=== PATIENT | female | born 1945 | race Caucasian/White ===

== ENCOUNTER → 2023-06-02 09:20 | Outpatient (CLI) | payer MEDICARE, SELFPAY ==
[2023-06-02 12:53] LABS: Appearance Urine UA CLEAR; Bilirubin Urine UA NEGATIVE (NEGATIVE); Color Urine UA YELLOW; Glucose Urine UA NEGATIVE (Negative); Ketones Urine UA NEGATIVE (NEGATIVE); Leukocyte Esterase Urine UA NEGATIVE (NEGATIVE); Nitrite Urine UA NEGATIVE (Negative); Occult Blood Urine UA NEGATIVE (Negative); Protein Urine UA NEGATIVE (Negative)
[2023-06-02 13:06] LABS: pH Urine UA 6.5 (4.5-8.0)
[2023-06-02 14:01] LABS: Bacteria Urine None Seen; Culture Indicated Urine Cult Not Indicated; RBC Urine 0-1/HPF (0-5/HPF); Squamous Epithelial Cell Urine 0-1 /HPF (0-5/HPF); WBC Urine 0-1/HPF (0-5/HPF)
== END ==
PROVIDERS: Referring Provider Family Medicine; Visit Provider Family Medicine
DX: R35.0 Frequency of micturition (principal)
CPT/HCPCS: 81001

== ENCOUNTER 2023-07-14 08:15 | Emergency (ER) | payer MEDICARE, SELFPAY ==
[2023-07-14] VITALS (14 sets, daily range): BP systolic 120–173; BP diastolic 61–95; PULSE 71–86; RESP 16; TEMP 36.1; O2SAT 92–99
--- NOTE | 2023-07-14 08:25 | DI.RAD.S_ITS ---
PROCEDURE: XR ABDOMEN MIN 2V INDICATIONS: abd pain, constipation TECHNIQUE: 2 views of the abdomen were acquired. COMPARISON: None. FINDINGS: Surgical changes and devices: None. Bowel: Large fecal loading with gas. Prominent central small bowel loops also present. Soft tissues: Pelvic calcifications, probably a calcified fibroid. Bones: Degenerative changes. IMPRESSION: Large fecal loading. Prominent central small bowel loops. Findings may represent constipation and ileus. Differential includes obstruction. Consider CT if there is high concern for acute abdomen. Dictated by: Nilesh Peralta M.D. on 07/14/2023 at 8:58 Approved by: Nilesh Peralta M.D. on 07/14/2023 at 8:59
[2023-07-14 08:46] LABS: Add Manual Diff / Slide Review NO; Basophils Absolute Auto 0 /uL (0-100); Basophils Percent Auto 0.4 % (0-2); Eosinophils Absolute Auto 200 /uL (0-450); Eosinophils Percent Auto 2.3 % (2-4); Hematocrit 44.6 % (36-46); Hemoglobin 15.2 g/dL (12.0-16.0); Lymphocytes Absolute Auto 1600 /uL (1100-4500); Lymphocytes Percent Auto 17.7 % (25-40); Mean Corpuscular HGB Conc 34.1 % (30-36); Mean Corpuscular Hemoglobin 31.3 PG (26-34); Mean Corpuscular Volume 91.8 fL (80-100); Monocytes Absolute Auto 700 /uL (0-900); Monocytes Percent Auto 7.7 % (3-14); Neutrophils Absolute Auto 6400 /uL (1500-7000); Neutrophils Percent Auto 71.9 % (50-75); Platelet Count 278 X10^3/uL (150-400); Red Blood Cell Count 4.85 X10^6/uL (4.0-5.2); Red Cell Distribution Width 12.7 % (11.6-14.8); White Blood Cell Count 8.9 X10^3/uL (4.5-11.0)
[2023-07-14 08:55] LABS: Alanine Aminotransferase 99 IU/L (<35); Albumin 4.3 g/dL (3.5-5.0); Albumin Globulin Ratio 1.4 (1.0-2.8); Alkaline Phosphatase 166 U/L (38-126); Aspartate Aminotransferase 76 IU/L (14-36); BUN Creatinine Ratio 15.6 (6-22); Bilirubin Total 0.9 mg/dL (0.2-1.3); Blood Urea Nitrogen 12 mg/dL (7-17); Calcium 9.7 mg/dL (8.4-10.2); Carbon Dioxide 31 mmol/L (22-32); Chloride 102 mmol/L (98-107); Estimated Glomerular Filt Rate > 60 mL/min (>60); Globulin 3.1 g/dL (1.7-4.1); Glucose 103 mg/dL (80-110); HEMOLYSIS 16 (0-50); Lipase 45 U/L (23-300); Potassium 3.6 mmol/L (3.4-5.1); Sodium 142 mmol/L (137-145); Total Protein 7.4 g/dL (6.3-8.2)
--- NOTE | 2023-07-14 09:16 | DI.CT.S_ITS ---
PROCEDURE: CT ABDOMEN PELVIS W CON INDICATIONS: abd pain, +constipation, dementia TECHNIQUE: After the administration of intravenous contrast, axial sections acquired from the lung bases to the pubic symphysis. Coronal and sagittal reformats were performed. For radiation dose reduction, the following was used: automated exposure control, adjustment of mA and/or kV according to patient size. Comparison: None. FINDINGS: Image quality: Excellent. Lung bases: Unremarkable. Heart: No significant findings. ABDOMEN: Liver: Unremarkable. Gallbladder: Demonstrates multiple calculi within its lumen Biliary ducts: Unremarkable. Pancreas: Unremarkable. Spleen: Unremarkable. Adrenal Glands: Unremarkable. Kidneys and Ureters: Unremarkable. Stomach and Bowel: Large amount of colonic stool. Stomach, small bowel loops, and colon are otherwise unremarkable. Appendix is not seen. No evidence of appendicitis. Peritoneum: No abnormal intraperitoneal fluid. No free air. Ventral Wall: No hernias. Abdominal Nodes: No retroperitoneal or mesenteric adenopathy by size criteria. Vessels: Aorta and inferior vena cava are normal in size. PELVIS: Pelvic Organs: Uterine calcifications are present, consistent with fibroids. Bladder: Unremarkable. Pelvic Nodes: No enlarged lymph nodes. Miscellaneous: No hernias are seen. Bones: Unremarkable. IMPRESSION: 1. No acute process. 2. Appendix not seen. No evidence of appendicitis. 3. Cholelithiasis. No evidence of cholecystitis. 4. Large amount of colonic stool. 5. Uterine fibroids. Dictated by: Hi Hassan M.D. on 07/14/2023 at 9:46 Approved by: Hi Hassan M.D. on 07/14/2023 at 9:48
[2023-07-14 10:36] LABS: Appearance Urine UA CLEAR; Bilirubin Urine UA NEGATIVE (NEGATIVE); Color Urine UA YELLOW; Glucose Urine UA NEGATIVE (Negative); Ketones Urine UA TRACE (NEGATIVE); Leukocyte Esterase Urine UA NEGATIVE (NEGATIVE); Nitrite Urine UA NEGATIVE (Negative); Occult Blood Urine UA NEGATIVE (Negative); Protein Urine UA NEGATIVE (Negative); Specific Gravity Urine UA 1.015 (1.000-1.035)
[2023-07-14 10:38] LABS: pH Urine UA 5.5 (4.5-8.0)
[2023-07-14 10:56] LABS: Amorphous Sediment Urine 1+; Bacteria Urine Few (2-10); Culture Indicated Urine Cult Not Indicated; Mucus Urine 1+ (Negative); RBC Urine 0-1/HPF (0-5/HPF); Squamous Epithelial Cell Urine 0-1 /HPF (0-5/HPF); WBC Urine 0-1/HPF (0-5/HPF)
--- NOTE | 2023-07-14 11:38 | ED.ABDPAIN ---
HPI - Abdominal Pain General Chief Complaint: Abdominal Pain Stated Complaint: abd pain Time Seen by Provider: 07/14/23 09:16 Source: patient, family (.) and EMS Mode of arrival: EMS Limitations: other (dementia, at baseline per .) History of Present Illness HPI narrative: 77-year-old female with history of advanced dementia, atrial fibrillation, remote seizure on diltiazem, lamotrigine, the amantadine as citalopram. Patient is brought today for abdominal pain. She is had chronic constipation that usually treat with prune juice. She is had daily bowel movements but they have been hard and pebbly and described as constipated. No black or bloody stools no diarrheal stools. No fevers or chills. No nausea or vomiting. Family presents with her as patient was complaining of some abdominal pain on the right yesterday. She had an Advil that seemed to be helpful and then today when she was being bathed seemed very painful in complaining of abdominal pain. No reports of back or flank pain. She has had prior UTIs no recent urinary symptoms reported. notes that they did increase her trazodone 200 mg in the past 6 weeks because of insomnia. She is not on any other stool softeners. Her diltiazem is for remote history of AFib 10 years ago, reported remote seizure activity and on lamotrigine, memantine and sats have Librium 2.5 mg being stopped as increasing her trazodone. No surgeries. No known drug allergies. No tobacco, alcohol or illicit. Patient is verbal will answer yes no to questions. Has been bedside states she is at her baseline. Her primary care is Mike Calderon through [facility]. Related Data Previous Rx's Medication Instructions Recorded docusate sodium 100 mg capsule 100 mg PO BID #60 caps 07/14/23 (Dulcolax Stool Softener (docusate)) Allergies Allergy/AdvReac Type Severity Reaction Status Date / Time No Known Drug Allergies Allergy Verified 07/14/23 08:24 Review of Systems Review of Systems ROS Unobtainable: All systems reviewed & are unremarkable except as noted in HPI and below Patient History Social History Smoking Status: Never smoker Smoking Status: Never smoker Substance Use Type: does not use Exam Narrative Exam Narrative: GENERAL: Alert and oriented to self. No acute distress. Patient resting quietly awakens easily on exam. HEENT: Head normocephalic, atraumatic, EOMI, pupils reactive, face symmetric, moist mucous membranes NECK: Supple, full range of motion CARDIOVASCULAR: Regular rate and rhythm without murmurs, rubs or gallops. RESPIRATORY: Breath sounds equal bilaterally, no wheezes rales or rhonchi. ABDOMEN: Soft, nontender. Patient is little bit distended and feels. Normoactive bowel sounds all 4 quadrants. No guarding or rebound, rigidity, no mass, no pulsatile mass or bruit. : No CVA tenderness EXTREMITIES: Normal range of motion, no clubbing or edema. Neurovascularly intact NEUROLOGICAL: Cranial nerves II through XII grossly intact. Moving all extremities SKIN: Warm, dry, no petechiae, no rashes or lesions, no jaundice. Initial Vital Signs Initial Vital Signs: Vital Signs Pulse Rate 79 07/14/23 08:21 Pulse Oximetry 92 07/14/23 08:21 Course Orders Ordered: ED Orders 07/14/23 09:26 EKG-12 Lead Stat 07/14/23 10:29 Urinalysis and Microscopic Stat Discontinued Medications Ondansetron HCl (Ondansetron 4 Mg Odt) 4 mg PO NOW PRN PRN Reason: Nausea And Vomiting Ondansetron HCl (Ondansetron 4 Mg/2 Ml Inj) 4 mg IV NOW PRN PRN Reason: Nausea And Vomiting Vital Signs Vital signs: Vital Signs - 8 hr 07/14/23 10:30 07/14/23 10:32 07/14/23 10:32 Pulse Rate 86 83 Blood Pressure 170/81 H Pulse Oximetry 94 93 07/14/23 11:00 07/14/23 11:01 07/14/23 11:01 Pulse Rate 75 76 Blood Pressure 173/84 H Pulse Oximetry 97 97 07/14/23 11:30 07/14/23 11:31 07/14/23 11:31 Pulse Rate 75 75 Blood Pressure 134/65 Pulse Oximetry 97 97 07/14/23 12:00 07/14/23 12:00 Pulse Rate 79 Blood Pressure 144/80 H Pulse Oximetry 95 MDM - Abdominal Pain Lab Data 07/14/23 08:35 07/14/23 08:35 Labs: Lab Results 07/14/23 07/14/23 07/14/23 Range/Units 08:35 08:35 10:29 WBC 8.9 (4.5-11.0) X10^3/uL RBC 4.85 (4.0-5.2) X10^6/uL Hgb 15.2 (12.0-16.0) g/dL Hct 44.6 (36-46) % MCV 91.8 (80-100) fL MCH 31.3 (26-34) PG MCHC 34.1 (30-36) % RDW 12.7 (11.6-14.8) % Plt Count 278 (150-400) X10^3/uL Neut % (Auto) 71.9 (50-75) % Lymph % (Auto) 17.7 L (25-40) % [place] % (Auto) 7.7 (3-14) % Eos % (Auto) 2.3 (2-4) % Baso % (Auto) 0.4 (0-2) % Neut # (Auto) 6400 (1410-1149) /uL Lymph # (Auto) 1600 (5722-8984) /uL [place] # (Auto) 700 (0-900) /uL Eos # (Auto) 200 (0-450) /uL Baso # (Auto) 0 (0-100) /uL Sodium 142 (137-145) mmol/L Potassium 3.6 (3.4-5.1) mmol/L Chloride 102 (98-107) mmol/L Carbon Dioxide 31 (22-32) mmol/L BUN 12 (7-17) mg/dL Creatinine 0.77 (0.52-1.04) mg/dL Estimated GFR > 60 (>60) mL/min BUN/Creatinine Ratio 15.6 (6-22) Glucose 103 (80-110) mg/dL Calcium 9.7 (8.4-10.2) mg/dL Total Bilirubin 0.9 (0.2-1.3) mg/dL AST 76 H (14-36) IU/L ALT 99 H (<35) IU/L Alkaline Phosphatase 166 H (38-126) U/L Total Protein 7.4 (6.3-8.2) g/dL Albumin 4.3 (3.5-5.0) g/dL Globulin 3.1 (1.7-4.1) g/dL Albumin/Globulin Ratio 1.4 (1.0-2.8) Lipase 45 (23-300) U/L Urine Color Yellow Urine Appearance Clear Urine pH 5.5 (4.5-8.0) Ur Specific [place] 1.015 (1.000-1.035) Urine Protein Negative (Negative) Urine Glucose (UA) Negative (Negative) g/dL Urine Ketones Trace H (NEGATIVE) Urine Occult Blood Negative (Negative) Urine Nitrate Negative (Negative) Urine Bilirubin Negative (NEGATIVE) Urine Urobilinogen 2.0 H (0.2) E.U./dL Ur Leukocyte Esterase Negative (NEGATIVE) Urine RBC 0-1/hpf (0-5/HPF) Urine WBC 0-1/hpf (0-5/HPF) Ur Squamous Epith Cells 0-1 /hpf (0-5/HPF) Amorphous Sediment 1+ Urine Bacteria Few (2-10) H (None) Urine Mucus 1+ H (Negative) Ur Culture Indicated? Cult not indicated Imaging Data CT scan - abdomen/pelvis: Radiologist's Impression: Close Abdomen/Pelvis CT (Signed) Hi Hassan - 07/14/23 Abdomen X-Ray (Signed) Nilesh Peralta - 07/14/23 Launch?[place] [address] CT Scan Report Signed Patient: Arlen Redding MR#: [id number] : 1945 Acct:[id number] Age/Sex: 77 / F Date of Service: 07/14/23 Loc: ED Accession Number: [id number] ?? Procedure: CT abdomen pelvis w con Ordering Provider: Naina Balderas D.O. PROCEDURE:? CT ABDOMEN PELVIS W CON ? INDICATIONS:? abd pain, +constipation, dementia ? TECHNIQUE:? After the administration of intravenous contrast, axial sections acquired from the lung bases to the pubic symphysis.? Coronal and sagittal reformats were performed.? For radiation dose reduction, the following was used:? automated exposure control, adjustment of mA and/or kV according to patient size.? ? Comparison:? None. ? FINDINGS:? Image quality:? Excellent.? ? Lung bases:? Unremarkable. Heart:? No significant findings. ? ABDOMEN: Liver:? Unremarkable.? ? Gallbladder:? Demonstrates multiple calculi within its lumen? ? Biliary ducts:? Unremarkable.? ? Pancreas:? Unremarkable.? ? Spleen:? Unremarkable.? ? Adrenal Glands:? Unremarkable.? ? Kidneys and Ureters:? Unremarkable.? ? ? Stomach and Bowel:? Large amount of colonic stool.? Stomach, small bowel loops, and colon are otherwise unremarkable.? Appendix is not seen.? No evidence of appendicitis. Peritoneum:? No abnormal intraperitoneal fluid.? No free air.? ? Ventral Wall: ? No hernias.? Abdominal Nodes:? No retroperitoneal or mesenteric adenopathy by size criteria.? Vessels:? Aorta and inferior vena cava are normal in size.? ? PELVIS: Pelvic Organs:? Uterine calcifications are present, consistent with fibroids. Bladder:? Unremarkable.? ? Pelvic Nodes: No enlarged lymph nodes.? Miscellaneous: No hernias are seen. ? ? ? Bones:? Unremarkable.? IMPRESSION:? 1. No acute process. 2. Appendix not seen.? No evidence of appendicitis. 3. Cholelithiasis.? No evidence of cholecystitis. 4. Large amount of colonic stool. 5. Uterine fibroids.? ? ? Dictated by: Hi Hassan M.D. on 07/14/2023 at 9:46 ? ? Approved by: Hi Hassan M.D. on 07/14/2023 at 9:48?? 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 No priors available. MDM Narrative Medical decision making narrative: This is a 77-year-old female with reported advanced dementia with known constipation. Workup today including CBC, CMP and lipase shows mildly elevated LFTs states that this is her normal baseline not do or different urine shows few bacteria but no nitrates no leuks, 0-1 RBC and white cells, positive for trace ketones and urobilinogen making infection less likely. CT abdomen pelvis was obtained patient has a large amount of stool throughout the colon, appendix is not visualized but no evidence of appendicitis. There is some uterine calcifications consistent with fibroids and she does have gallstones but no thickening or changes on ultrasound imaging. On examination patient is nontender. With her chronic elevated enzymes discussed with and feel comfortable increasing her stool softeners as they know she has had hard pebbly stools see if this improves her symptoms. We did discuss return precautions if she is developing fevers recurrent or persistent abdominal pain or other new or concerning changes. Patient feels comfortable this plan discussed adding Colace as she is only using prune juice currently. Discussed making alpa to have plenty of fluids, ect. Return precautions. Discharge Plan Departure Patient Disposition: Home Clinical Impression: Constipation, Elevated LFTs, Gallstones Instructions: DI for Constipation Activity Restrictions/Additional Instructions: Please follow-up for recheck as needed. Your imaging does show gallstones, if you develop pain particularly in the right upper abdomen, fevers, nausea or vomiting or increasing changes please return for recheck. Your CT does show quite a bit of stool consistent with constipation. Trazodone can sometimes slow the gut and maybe contributing a little bit to constipation as well. Continue with prune juice, you can add Colace 1 tablet every 12 hours. You may stop this medication when stools are soft and regular. Make sure you are drinking plenty of fluids whether this is water, juice or other foods with high fluids/fiber content. Prescription printed Please return for fevers, new or worsening abdominal back or flank pain, vomiting, color changes, if you are not having any bowel movements or passing gas for 24 hours or other new or concerning changes. Prescriptions: New docusate sodium [Dulcolax Stool Softener (dss)] 100 mg capsule 100 mg PO BID Qty: 60 0RF Referrals: [facility] Calderon [Other] Stand Alone Forms: Patient Portal/API
== END 2023-07-14 12:20 | disposition home or self-care (01) ==
PROVIDERS: Emergency Provider Emergency Medicine
DX: K59.00 Constipation, unspecified (principal); R79.89 Other specified abnormal findings of blood chemistry; K80.20 Calculus of gallbladder without cholecystitis without obstruction; R10.9 Unspecified abdominal pain
CPT/HCPCS: 36415; 74019; 74177; 80053; 81001; 83690; 85025; 93005; 93010; 99284

== ENCOUNTER 2023-07-17 09:51 | Emergency (ER) | payer MEDICARE, SELFPAY ==
[2023-07-17] VITALS (16 sets, daily range): BP systolic 101–186; BP diastolic 54–106; PULSE 77–95; RESP 16–20; TEMP 36.6–36.9; O2SAT 92–98; BMI 20.1
--- NOTE | 2023-07-17 09:57 | DI.US.S_ITS ---
PROCEDURE: US ABDOMEN LIMITED INDICATIONS: RUQ PAIN TECHNIQUE: Real-time scanning was performed of the abdominal and retroperitoneal organs, with image documentation. COMPARISON: None. FINDINGS: Liver: Homogeneous echotexture. No evidence of focal mass lesion. No intra hepatic biliary ductal dilatation Gallbladder: Cholelithiasis without gallbladder wall thickening or pericholecystic fluid Common Bile Duct: 3.2 mm. Pancreas: Unremarkable as visualized Right Kidney: Appropriate in size and echotexture. There is right renal medullary cyst 1.7 cm. No shadowing calculi. No solid or cystic mass lesion. IMPRESSION: 1. Right renal cyst versus isolated right renal upper pole hydronephrosis. Consider follow-up CT 2. Cholelithiasis without ultrasound evidence of acute cholecystitis Approved by: Jamal Alonzo M.D. on 07/17/2023 at 12:19
[2023-07-17 10:13] LABS: Add Manual Diff / Slide Review NO; Basophils Absolute Auto 0 /uL (0-100); Basophils Percent Auto 0.6 % (0-2); Eosinophils Absolute Auto 200 /uL (0-450); Eosinophils Percent Auto 2.2 % (2-4); Hematocrit 43.6 % (36-46); Hemoglobin 14.8 g/dL (12.0-16.0); Lymphocytes Absolute Auto 1500 /uL (1100-4500); Lymphocytes Percent Auto 19.8 % (25-40); Mean Corpuscular Hemoglobin 31.2 PG (26-34); Mean Corpuscular Volume 91.8 fL (80-100); Monocytes Absolute Auto 600 /uL (0-900); Neutrophils Absolute Auto 5400 /uL (1500-7000); Neutrophils Percent Auto 69.4 % (50-75); Platelet Count 260 X10^3/uL (150-400); Red Blood Cell Count 4.75 X10^6/uL (4.0-5.2); Red Cell Distribution Width 12.5 % (11.6-14.8); White Blood Cell Count 7.8 X10^3/uL (4.5-11.0)
[2023-07-17 10:36] LABS: Alanine Aminotransferase 82 IU/L (<35); Albumin Globulin Ratio 1.4 (1.0-2.8); Alkaline Phosphatase 175 U/L (38-126); Aspartate Aminotransferase 62 IU/L (14-36); BUN Creatinine Ratio 16.4 (6-22); Blood Urea Nitrogen 12 mg/dL (7-17); Calcium 9.5 mg/dL (8.4-10.2); Carbon Dioxide 27 mmol/L (22-32); Chloride 105 mmol/L (98-107); Estimated Glomerular Filt Rate > 60 mL/min (>60); Globulin 2.9 g/dL (1.7-4.1); Glucose 95 mg/dL (80-110); HEMOLYSIS < 15 (0-50); Lipase 26 U/L (23-300); Potassium 3.8 mmol/L (3.4-5.1); Sodium 139 mmol/L (137-145); Total Protein 6.9 g/dL (6.3-8.2)
--- NOTE | 2023-07-17 10:50 | ED.ABDPAIN ---
HPI - Abdominal Pain General Chief Complaint: Abdominal Pain Stated Complaint: Abd Pain Time Seen by Provider: 07/17/23 09:57 History of Present Illness HPI narrative: Patient is 77-year-old female history of advanced dementia, atrial fibrillation, remote seizure presents for the 2nd time this week for abdominal pain. She lives in a custodial they were concerned about constipation. This is the 2nd time this week. She was seen evaluated here on July [address] and full workup diagnosed with cholelithiasis with no evidence of cholecystitis and constipation. presents again today with reports of abdominal pain. She is afebrile. Initially appears comfortable. She is overall a very poor historian unsure if she is verbal. penitentiary states that she has been having bowel movements not thought to be constipated. Related Data Previous Rx's Medication Instructions Recorded docusate sodium 100 mg capsule 100 mg PO BID #60 caps 07/14/23 (Dulcolax Stool Softener (docusate)) Allergies Allergy/AdvReac Type Severity Reaction Status Date / Time No Known Drug Allergies Allergy Verified 07/17/23 10:15 Review of Systems Review of Systems ROS Unobtainable: All systems reviewed & are unremarkable except as noted in HPI and below Patient History Social History Smoking Status: Never smoker Smoking Status: Never smoker Substance Use Type: does not use Exam Initial Vital Signs Initial Vital Signs: Vital Signs Pulse Rate 93 H 07/17/23 09:57 GENERAL: Alert 77-year-old female and in no acute distress. HEENT: Head atraumatic,EOMI, pupils reactive, face symmetric, moist mucous membranes CARDIOVASCULAR: Regular rate and rhythm without murmurs, rubs or gallops. RESPIRATORY: Breath sounds equal bilaterally, no wheezes rales or rhonchi. ABDOMEN: Soft, nondistended diffusely tender guarding EXTREMITIES: Normal range of motion, no clubbing or edema. Neurovascularly intact NEUROLOGICAL: Alert responds to pain SKIN: Warm, dry, no laceration, no petechiae, no rashes or lesions. Course Orders Ordered: ED Orders 07/17/23 09:57 US abdomen limited Stat 07/17/23 09:59 Complete Blood Count AUTO DIFF Stat Comprehensive Metabolic Panel Stat Lipase Stat 07/17/23 10:20 EKG-12 Lead Stat 07/17/23 10:43 Urinalysis and Microscopic Stat Discontinued Medications Ketorolac Tromethamine (Ketorolac 30 Mg/Ml Vial) 15 mg IV NOW ONE Stop: 07/17/23 11:04 Last Admin: 07/17/23 11:24 Dose: 15 mg Documented By: FRAN Vital Signs Vital signs: Vital Signs - 8 hr 07/17/23 10:07 07/17/23 09:57 07/17/23 10:00 Temperature 97.8 F Pulse Rate 87 93 H 88 Respiratory Rate 16 Blood Pressure 186/85 H Pulse Oximetry 97 93 Oxygen Delivery Method Room Air 07/17/23 10:30 07/17/23 11:00 07/17/23 11:30 Temperature Pulse Rate 89 80 85 Respiratory Rate Blood Pressure Pulse Oximetry 96 Oxygen Delivery Method 07/17/23 11:36 07/17/23 11:36 07/17/23 12:00 Temperature Pulse Rate 86 Respiratory Rate 20 Blood Pressure 156/106 H 101/54 L Pulse Oximetry Oxygen Delivery Method Room Air 07/17/23 12:00 07/17/23 12:30 07/17/23 12:31 Temperature Pulse Rate 77 95 H 94 H Respiratory Rate Blood Pressure Pulse Oximetry 97 94 92 Oxygen Delivery Method 07/17/23 12:31 07/17/23 13:00 07/17/23 13:00 Temperature Pulse Rate 77 Respiratory Rate Blood Pressure 172/67 H 145/67 H Pulse Oximetry 98 Oxygen Delivery Method 07/17/23 13:30 07/17/23 13:31 07/17/23 14:00 Temperature Pulse Rate 85 88 Respiratory Rate Blood Pressure 142/65 H Pulse Oximetry 97 97 Oxygen Delivery Method 07/17/23 14:00 Temperature Pulse Rate 82 Respiratory Rate Blood Pressure Pulse Oximetry 97 Oxygen Delivery Method MDM - Abdominal Pain Lab Data 07/17/23 09:59 07/17/23 09:59 Labs: Lab Results 07/17/23 07/17/23 07/17/23 Range/Units 09:59 09:59 10:43 WBC 7.8 (4.5-11.0) X10^3/uL RBC 4.75 (4.0-5.2) X10^6/uL Hgb 14.8 (12.0-16.0) g/dL Hct 43.6 (36-46) % MCV 91.8 (80-100) fL MCH 31.2 (26-34) PG MCHC 34.0 (30-36) % RDW 12.5 (11.6-14.8) % Plt Count 260 (150-400) X10^3/uL Neut % (Auto) 69.4 (50-75) % Lymph % (Auto) 19.8 L (25-40) % [place] % (Auto) 8.0 (3-14) % Eos % (Auto) 2.2 (2-4) % Baso % (Auto) 0.6 (0-2) % Neut # (Auto) 5400 (2656-6896) /uL Lymph # (Auto) 1500 (5657-1510) /uL [place] # (Auto) 600 (0-900) /uL Eos # (Auto) 200 (0-450) /uL Baso # (Auto) 0 (0-100) /uL Sodium 139 (137-145) mmol/L Potassium 3.8 (3.4-5.1) mmol/L Chloride 105 (98-107) mmol/L Carbon Dioxide 27 (22-32) mmol/L BUN 12 (7-17) mg/dL Creatinine 0.73 (0.52-1.04) mg/dL Estimated GFR > 60 (>60) mL/min BUN/Creatinine Ratio 16.4 (6-22) Glucose 95 (80-110) mg/dL Calcium 9.5 (8.4-10.2) mg/dL Total Bilirubin 1.0 (0.2-1.3) mg/dL AST 62 H (14-36) IU/L ALT 82 H (<35) IU/L Alkaline Phosphatase 175 H (38-126) U/L Total Protein 6.9 (6.3-8.2) g/dL Albumin 4.0 (3.5-5.0) g/dL Globulin 2.9 (1.7-4.1) g/dL Albumin/Globulin Ratio 1.4 (1.0-2.8) Lipase 26 (23-300) U/L Urine Color Yellow Urine Appearance Clear Urine pH 6.5 (4.5-8.0) Ur Specific [place] 1.025 (1.000-1.035) Urine Protein Negative (Negative) Urine Glucose (UA) Negative (Negative) g/dL Urine Ketones Trace H (NEGATIVE) Urine Occult Blood Negative (Negative) Urine Nitrate Negative (Negative) Urine Bilirubin Negative (NEGATIVE) Urine Urobilinogen 2.0 H (0.2) E.U./dL Ur Leukocyte Esterase Negative (NEGATIVE) Urine RBC 0-1/hpf (0-5/HPF) Urine WBC 0-1/hpf (0-5/HPF) Ur Squamous Epith Cells 0-1 /hpf (0-5/HPF) Amorphous Sediment 1+ Urine Bacteria Occasional (0-1) (None) Ur Culture Indicated? Cult not indicated Imaging Data US - abdomen: Radiologist's Impression: PROCEDURE:? US ABDOMEN LIMITED ? INDICATIONS:? RUQ PAIN ? TECHNIQUE:? Real-time scanning was performed of the abdominal and retroperitoneal organs, with image documentation.? ? COMPARISON:? None. ? FINDINGS: ? Liver:? Homogeneous echotexture.? No evidence of focal mass lesion.? No intra hepatic biliary ductal dilatation ? Gallbladder:? Cholelithiasis without gallbladder wall thickening or pericholecystic fluid ? Common Bile Duct:? 3.2 mm. ? Pancreas:? Unremarkable as visualized ? Right Kidney: Appropriate in size and echotexture.? There is right renal medullary cyst 1.7 cm.? No shadowing calculi.? No solid or cystic mass lesion. ? IMPRESSION: ? 1. Right renal cyst versus isolated right renal upper pole hydronephrosis.? Consider follow-up CT ? 2. Cholelithiasis without ultrasound evidence of acute cholecystitis ? Approved by: Jamal Alonzo M.D. on 07/17/2023 at 12:19? ECG Data Interpretation: Sinus rhythm rate 80 KS interval 154 QRS [address] changes similar to previous MDM Narrative Medical decision making narrative: Patient 77-year-old female nonverbal dementia presenting today with what sounds like abdominal pain. She again is diagnosed with cholelithiasis without evidence cholecystitis or dilated common bile duct. She is a normal bilirubin liver enzymes are improved over the same bilirubin 1.0 AST 62 ALT 82 alk-phos 175 normal lipase. She is afebrile without leukocytosis. Initially upon exam she was diffusely tender without distention. She was found to have urinary retention Val[place] catheter placed greater than 1 L returned. This may be from constipation however may have been causing her pain today. I did speak with Dr. Partida on-call for surgery the cholelithiasis recommends outpatient HIDA scan. Patient received Toradol seems much more comfortable since [place] catheter has been placed. At this time no need for admission. Discharge Plan Departure Patient Disposition: Home Clinical Impression: Acute urinary retention, Cholelithiasis Instructions: Gallstones, How to Care for Your Val[place] Catheter -- Female, DI for Urinary Retention in Women Activity Restrictions/Additional Instructions: *You have been diagnosed with gallstones and urinary retention *What to do: At this time multiple gallstones may or may not be causing some pain. Need an outpatient HIDA scan and to follow a gallbladder diet. She is found to have urinary retention a Valle[place] catheter has been placed. *Continue to take medications as directed *Follow up with your primary care provider in 2-3 days or call [phone] Follow-up with surgery in regards to gallbladder Follow-up with PCP or Urology in 1-2 weeks in regards to [place] catheter *Return to ER if you should have increasing pain change in behavior or any new, worsening or concerning symptoms Prescriptions: No Action docusate sodium [Dulcolax Stool Softener (dss)] 100 mg capsule 100 mg PO BID Qty: 60 0RF Stand Alone Forms: Patient Portal/API
[2023-07-17 11:01] LABS: Appearance Urine UA CLEAR; Bilirubin Urine UA NEGATIVE (NEGATIVE); Color Urine UA YELLOW; Glucose Urine UA NEGATIVE (Negative); Ketones Urine UA TRACE (NEGATIVE); Leukocyte Esterase Urine UA NEGATIVE (NEGATIVE); Nitrite Urine UA NEGATIVE (Negative); Occult Blood Urine UA NEGATIVE (Negative); Protein Urine UA NEGATIVE (Negative); Specific Gravity Urine UA 1.025 (1.000-1.035)
[2023-07-17 11:11] LABS: pH Urine UA 6.5 (4.5-8.0)
[2023-07-17 11:12] LABS: Amorphous Sediment Urine 1+; Bacteria Urine Occasional (0-1); Culture Indicated Urine Cult Not Indicated; RBC Urine 0-1/HPF (0-5/HPF); Squamous Epithelial Cell Urine 0-1 /HPF (0-5/HPF); WBC Urine 0-1/HPF (0-5/HPF)
[2023-07-17] MEDS: KETOROLAC 30 MG/ML VIAL 15 MG IV (11:24)
== END 2023-07-17 15:38 | disposition home or self-care (01) ==
PROVIDERS: Emergency Provider Emergency Medicine
DX: R33.8 Other retention of urine (principal); K80.20 Calculus of gallbladder without cholecystitis without obstruction; R03.0 Elevated blood-pressure reading, without diagnosis of hypertension
CPT/HCPCS: 36415; 51798; 76705; 80053; 81001; 83690; 85025; 93005; 93010; 96374; 99284; 99285; J1885

== ENCOUNTER 2023-08-02 11:47 | Emergency (ER) | payer MEDICARE, SELFPAY ==
[2023-08-02] VITALS (31 sets, daily range): BP systolic 83–141; BP diastolic 46–93; PULSE 57–98; RESP 9–34; TEMP 37.1; O2SAT 93–98
--- NOTE | 2023-08-02 13:08 | ED_ITS ---
HPI - General Adult General Chief complaint: Urogenital-Female Stated complaint: UTI/bleeding T-7/cath put in 07/17-pain/ Time Seen by Provider: 08/02/23 12:48 Source: family Mode of arrival: Wheelchair History of Present Illness HPI narrative: Patient is a 77-year-old female. She was seen here in the emergency department approximately 2 weeks ago for urinary retention. She would a Vallejo catheter in place. Is scheduled to see Urology however this is not until the middle of next month. Patient is unable provide any HPI. She does have a history of dementia. She is with her . He is concerned about potential urinary tract i nfection. He stated that the urine has quite a bit of sediment in it. Has been bloody in appearance. She is not been vomiting. No fevers. Related Data Home Medications Medication Instructions Recorded Confirmed cholecalciferol (vitamin D3) 25 25 mcg PO DAILY 07/29/23 08/02/23 mcg (1,000 unit) capsule diltiazem HCl 120 mg 120 mg PO DAILY 07/29/23 08/02/23 capsule,extended release 24 hr, controlled lamotrigine 100 mg tablet 100 mg PO BID 07/29/23 08/02/23 mecobalamin (vitamin B12) 1,000 1,000 mcg PO DAILY 07/29/23 08/02/23 mcg chewable tablet memantine 10 mg tablet 10 mg PO BID 07/29/23 08/02/23 trazodone 100 mg tablet 100 mg PO BEDTIME 07/29/23 08/02/23 Previous Rx's Medication Instructions Recorded docusate sodium 100 mg capsule 100 mg PO BID #60 caps 07/14/23 (Dulcolax Stool Softener (docusate)) levofloxacin 750 mg tablet 750 mg PO DAILY 4 days #4 tabs 08/02/23 Allergies Allergy/AdvReac Type Severity Reaction Status Date / Time No Known Drug Allergies Allergy Verified 08/02/23 12:38 Review of Systems Constitutional Constitutional: Reports system reviewed and no additional complaints, except as documented Genitourinary Genitourinary: Reports system reviewed and no additional complaints, except as documented Integumentary/Breasts Skin/Breast: Reports system reviewed and no additional complaints, except as documented Neurologic Neurologic: Reports system reviewed and no additional complaints, except as documented Patient History Social History marital status: lives independently: No Smoking Status: Never smoker Smoking Status: Never smoker alcohol intake frequency: other Substance Use Type: does not use Exam Initial Vital Signs Initial Vital Signs: Vital Signs Temperature 98.8 F 08/02/23 12:35 Pulse Rate 72 08/02/23 12:35 Respiratory Rate 18 08/02/23 12:35 Blood Pressure 113/93 H 08/02/23 12:35 Pulse Oximetry 98 08/02/23 12:35 Oxygen Delivery Method Room Air 08/02/23 12:35 GI Inspection: non-distended Other: Vallejo catheter in place Neuro Other: Patient is nonverbal. Does move all 4 extremities spontaneously. Course Orders Ordered: ED Orders 08/02/23 12:55 Ictotest Urine Stat Urinalysis and Microscopic Stat 08/02/23 13:00 Basic Metabolic Panel Stat Complete Blood Count AUTO DIFF Stat 08/02/23 13:10 Urine Culture Stat Discontinued Medications Sodium Chloride (Normal Saline 0.9%) 1,000 mls @ 1,000 mls/hr IV BOLUS ONE Stop: 08/02/23 14:03 Last Admin: 08/02/23 13:37 Dose: 1,000 mls/hr Documented By: KINGS Levofloxacin (Levofloxacin 250 Mg Tablet) 750 mg PO NOW ONE Stop: 08/02/23 13:53 Last Admin: 08/02/23 13:57 Dose: 750 mg Documented By: KINGS Vital Signs Vital signs: Vital Signs - 8 hr 08/02/23 12:35 08/02/23 13:14 08/02/23 13:15 Temperature 98.8 F Pulse Rate 72 59 L Respiratory Rate 18 12 Blood Pressure 113/93 H 98/54 L Pulse Oximetry 98 96 Oxygen Delivery Method Room Air Room Air 08/02/23 13:15 08/02/23 13:20 08/02/23 13:25 Temperature Pulse Rate 59 L 58 L 57 L Respiratory Rate 16 18 16 Blood Pressure Pulse Oximetry 96 93 93 Oxygen Delivery Method Room Air 08/02/23 13:30 08/02/23 13:30 08/02/23 13:35 Temperature Pulse Rate 57 L 58 L Respiratory Rate 9 L 12 Blood Pressure 83/46 L Pulse Oximetry 93 95 Oxygen Delivery Method 08/02/23 13:36 08/02/23 13:36 08/02/23 13:40 Temperature Pulse Rate 57 L 98 H Respiratory Rate 14 31 H Blood Pressure 86/51 L Pulse Oximetry 95 95 Oxygen Delivery Method 08/02/23 13:45 08/02/23 13:46 08/02/23 13:46 Temperature Pulse Rate 134 H 118 H Respiratory Rate 28 H 24 Blood Pressure 123/65 Pulse Oximetry 97 96 Oxygen Delivery Method 08/02/23 13:50 08/02/23 13:50 08/02/23 13:55 Temperature Pulse Rate 75 Respiratory Rate 26 H Blood Pressure 141/73 H 116/53 L Pulse Oximetry 96 Oxygen Delivery Method 08/02/23 13:55 08/02/23 14:00 08/02/23 14:00 Temperature Pulse Rate 64 68 Respiratory Rate 23 20 Blood Pressure 115/58 L Pulse Oximetry 96 95 Oxygen Delivery Method Room Air 08/02/23 14:05 08/02/23 14:10 Temperature Pulse Rate Respiratory Rate Blood Pressure 131/58 L Pulse Oximetry 97 Oxygen Delivery Method Room Air Medical Decision Making Medical Records Medical records reviewed: Yes I reviewed the patient's medical records. Lab Data Lab results reviewed: Yes I reviewed the patient's lab results. 08/02/23 13:00 08/02/23 13:00 Labs: Lab Results 08/02/23 08/02/23 08/02/23 Range/Units 12:55 13:00 13:00 WBC 6.7 (4.5-11.0) X10^3/uL RBC 4.47 (4.0-5.2) X10^6/uL Hgb 14.0 (12.0-16.0) g/dL Hct 40.9 (36-46) % MCV 91.4 (80-100) fL MCH 31.2 (26-34) PG MCHC 34.2 (30-36) % RDW 12.5 (11.6-14.8) % Plt Count 350 (150-400) X10^3/uL Neut % (Auto) 66.6 (50-75) % Lymph % (Auto) 21.1 L (25-40) % [place] % (Auto) 8.2 (3-14) % Eos % (Auto) 3.1 (2-4) % Baso % (Auto) 1.0 (0-2) % Neut # (Auto) 4500 (1625-5784) /uL Lymph # (Auto) 1400 (8530-3217) /uL [place] # (Auto) 600 (0-900) /uL Eos # (Auto) 200 (0-450) /uL Baso # (Auto) 100 (0-100) /uL Sodium 138 (137-145) mmol/L Potassium 3.5 (3.4-5.1) mmol/L Chloride 102 (98-107) mmol/L Carbon Dioxide 30 (22-32) mmol/L BUN 15 (7-17) mg/dL Creatinine 0.84 (0.52-1.04) mg/dL Estimated GFR > 60 (>60) mL/min BUN/Creatinine Ratio 17.9 (6-22) Glucose 93 (80-110) mg/dL Calcium 9.7 (8.4-10.2) mg/dL Urine Color Yellow Urine Appearance Clear Urine pH 7.0 (4.5-8.0) Ur Specific [place] 1.025 (1.000-1.035) Urine Protein 3+ H (Negative) Urine Glucose (UA) Negative (Negative) g/dL Urine Ketones Trace H (NEGATIVE) Urine Occult Blood 3+ H (Negative) Urine Nitrate Positive H (Negative) Urine Bilirubin 1+ H (NEGATIVE) Ur Bilirubin Confirm Negative (Negative) Urine Urobilinogen 4.0 H (0.2) E.U./dL Ur Leukocyte Esterase 2+ H (NEGATIVE) Urine RBC 30-100/hpf H (0-5/HPF) Urine WBC 5-10/hpf H (0-5/HPF) Ur Squamous Epith Cells 0-1 /hpf (0-5/HPF) Amorphous Sediment 1+ Urine Bacteria Moderate (10-30) H (None) Ur Culture Indicated? Cult not indicated MDM Narrative Medical decision making narrative: Urinalysis today is consistent with a urinary tract infection. Given the presence of the Vallejo catheter this would be consistent with a complicated UTI. She was given a dose of Levaquin here in the ER she tolerated it without issue. Her states that she can tolerate pills by mouth. Patient is not septic. Not vomiting. Urine culture pending. Will discharge home with a prescription for antibiotics. was given return precautions. He expressed understanding and agreement. Discharge Plan Departure Patient Disposition: Home Clinical Impression: Urinary tract infection Instructions: DI for Urinary Tract Infection (UTI) Activity Restrictions/Additional Instructions: Arlen can continue to take all of her medications as directed however we should start her on antibiotics. Her next dose will be tomorrow 08/03/2023. Keep all of her scheduled medical appointments. Return to the emergency department for new or worsening symptoms. Prescriptions: New levofloxacin 750 mg tablet 750 mg PO DAILY 4 Days Qty: 4 0RF Rx Instructions: Next dose 08/03/2023 No Action diltiazem HCl 120 mg capsule,ext.rel 24h degradable 120 mg PO DAILY lamotrigine 100 mg tablet 100 mg PO BID memantine 10 mg tablet 10 mg PO BID trazodone 100 mg tablet 100 mg PO BEDTIME cholecalciferol (vitamin D3) 25 mcg (1,000 unit) capsule 25 mcg PO DAILY mecobalamin (vitamin B12) 1,000 mcg tablet,chewable 1,000 mcg PO DAILY docusate sodium [Dulcolax Stool Softener (dss)] 100 mg capsule 100 mg PO BID Qty: 60 0RF Referrals: *Temp,ED* [Primary Care Provider] - Stand Alone Forms: Patient Portal/API
--- NOTE | 2023-08-02 13:13 | PC.NURSE ---
Pt was seen in ED 2 weeks ago for urinary retention and indwelling yen catheter was placed at that time. pt is now experiencing dark reddish-brown urine. Urine has foul odor, mucous threads and sediment noted in the yen tube and bag. Pt's is at bedside and states that pt's behavior is unusual and pt has been less responsive than normal. Urine sample obtained and sent to lab for culture.
[2023-08-02 13:35] LABS: Add Manual Diff / Slide Review NO; Basophils Absolute Auto 100 /uL (0-100); Eosinophils Absolute Auto 200 /uL (0-450); Eosinophils Percent Auto 3.1 % (2-4); Hematocrit 40.9 % (36-46); Lymphocytes Absolute Auto 1400 /uL (1100-4500); Lymphocytes Percent Auto 21.1 % (25-40); Mean Corpuscular HGB Conc 34.2 % (30-36); Mean Corpuscular Hemoglobin 31.2 PG (26-34); Mean Corpuscular Volume 91.4 fL (80-100); Monocytes Absolute Auto 600 /uL (0-900); Monocytes Percent Auto 8.2 % (3-14); Neutrophils Absolute Auto 4500 /uL (1500-7000); Neutrophils Percent Auto 66.6 % (50-75); Platelet Count 350 X10^3/uL (150-400); Red Blood Cell Count 4.47 X10^6/uL (4.0-5.2); Red Cell Distribution Width 12.5 % (11.6-14.8); White Blood Cell Count 6.7 X10^3/uL (4.5-11.0)
[2023-08-02] MEDS: SODIUM CHLORIDE 0.9% 1,000 ML 1000 ML IV (13:37)
--- NOTE | 2023-08-02 13:44 | PC.NURSE ---
1336 pt bp 86/51 HR 51. 1000ml NS fluid bolus started as ordered. MD aware. no new orders at this time.
[2023-08-02 13:45] LABS: Appearance Urine UA CLEAR; Bilirubin Urine UA 1+ (NEGATIVE); Color Urine UA YELLOW; Glucose Urine UA NEGATIVE (Negative); Ketones Urine UA TRACE (NEGATIVE); Leukocyte Esterase Urine UA 2+ (NEGATIVE); Nitrite Urine UA POSITIVE (Negative); Occult Blood Urine UA 3+ (Negative); Protein Urine UA 3+ (Negative); Specific Gravity Urine UA 1.025 (1.000-1.035)
[2023-08-02 13:53] LABS: Ictotest Urine Negative (Negative)
[2023-08-02 13:53] LABS: BUN Creatinine Ratio 17.9 (6-22); Blood Urea Nitrogen 15 mg/dL (7-17); Calcium 9.7 mg/dL (8.4-10.2); Carbon Dioxide 30 mmol/L (22-32); Chloride 102 mmol/L (98-107); Estimated Glomerular Filt Rate > 60 mL/min (>60); Glucose 93 mg/dL (80-110); HEMOLYSIS < 15 (0-50); Potassium 3.5 mmol/L (3.4-5.1); Sodium 138 mmol/L (137-145)
[2023-08-02] MEDS: levoFLOXacin 250 MG TABLET 750 MG PO (13:57)
[2023-08-02 14:13] LABS: RBC Urine 30-100/HPF (0-5/HPF)
[2023-08-02 14:14] LABS: Amorphous Sediment Urine 1+; Bacteria Urine Moderate (10-30); Culture Indicated Urine Cult Not Indicated; Squamous Epithelial Cell Urine 0-1 /HPF (0-5/HPF); WBC Urine 5-10/HPF (0-5/HPF)
--- NOTE | 2023-08-02 15:34 | PC.NURSE ---
Late entry, around 1400 RN changed yen catheter bag, bag draining light pink urine. Yen securement device changed to pt's right leg. Non-blanchable redness noted on pt's inner left thigh where previous yen securement device was.
== END 2023-08-02 15:39 | disposition home or self-care (01) ==
PROVIDERS: Emergency Provider Emergency Medicine
DX: N39.0 Urinary tract infection, site not specified (principal)
CPT/HCPCS: 80048; 81001; 85025; 87077; 87086; 87147; 87186; 96360; 99284

== ENCOUNTER 2023-08-04 19:41 | Emergency (ER) | payer MEDICARE, SELFPAY ==
[2023-08-04 19:43] VITALS: BP 123/65; PULSE 88; RESP 15; TEMP 37.2; O2SAT 95
--- NOTE | 2023-08-04 19:47 | ED.GENADULT ---
HPI - General Adult General Chief complaint: Urogenital-Female Stated complaint: catheter leaking Time Seen by Provider: 08/04/23 19:43 Source: EMS Mode of arrival: EMS History of Present Illness HPI narrative: 77-year-old female with history of dementia is unable to provide elements to the story. She had recently been here a few weeks ago for urinary retention and has a Vallejo catheter in place. She was seen a few days ago and had a urinary tract infection and is sent here by EMS because of an apparent Vallejo catheter problem. There is no report of any perceived pain, vomiting, fever, only that the Vallejo catheter is leaking and they do not have staff to replace it at the facility that she came from Related Data Home Medications Medication Instructions Recorded Confirmed cholecalciferol (vitamin D3) 25 25 mcg PO DAILY 07/29/23 08/02/23 mcg (1,000 unit) capsule diltiazem HCl 120 mg 120 mg PO DAILY 07/29/23 08/02/23 capsule,extended release 24 hr, controlled lamotrigine 100 mg tablet 100 mg PO BID 07/29/23 08/02/23 mecobalamin (vitamin B12) 1,000 1,000 mcg PO DAILY 07/29/23 08/02/23 mcg chewable tablet memantine 10 mg tablet 10 mg PO BID 07/29/23 08/02/23 trazodone 100 mg tablet 100 mg PO BEDTIME 07/29/23 08/02/23 Previous Rx's Medication Instructions Recorded docusate sodium 100 mg capsule 100 mg PO BID #60 caps 07/14/23 (Dulcolax Stool Softener (docusate)) levofloxacin 750 mg tablet 750 mg PO DAILY 4 days #4 tabs 08/02/23 Allergies Allergy/AdvReac Type Severity Reaction Status Date / Time No Known Drug Allergies Allergy Verified 08/04/23 19:44 Review of Systems Review of Systems ROS Unobtainable: Unobtainable due to mental status/LOC Patient History Social History marital status: lives independently: No Smoking Status: Never smoker Smoking Status: Never smoker alcohol intake frequency: other Substance Use Type: does not use Exam Narrative Exam Narrative: GEN: 77F resting comfortably, non communicative, this is neurologic baseline per nursing staff at her home. No perceived discomfort or pain EYES: Pupils are equal, round, and reactive to light and accommodation. Extraoccular muscles are intact bilaterally. There is no subconjunctival hemorrhage or exudate. CHEST: Lungs are clear to auscultation bilaterally and free of wheezes, rales, or rhonchi. Heart rate is regular rhythm, there are no murmurs, clicks, rubs, or gallops. There is no chest wall tenderness. ABD: Abdomen is soft and nontender. There is no guarding or rebound. Bowel sounds are normal in all 4 quadrants. There is no mass or organomegaly. EXT: Full painless ROM of all extremities with no loss of sensation or strength. SKIN: Warm, pink, and dry. No erythema or rash Initial Vital Signs Initial Vital Signs: Vital Signs Temperature 98.9 F 08/04/23 19:43 Pulse Rate 88 08/04/23 19:43 Respiratory Rate 15 08/04/23 19:43 Blood Pressure 123/65 08/04/23 19:43 Pulse Oximetry 95 08/04/23 19:43 Oxygen Delivery Method Room Air 08/04/23 19:43 Course Vital Signs Vital signs: Vital Signs - 8 hr 08/04/23 19:43 Temperature 98.9 F Pulse Rate 88 Respiratory Rate 15 Blood Pressure 123/65 Pulse Oximetry 95 Oxygen Delivery Method Room Air Medical Decision Making [facility] Narrative Medical decision making narrative: [77] year old patient presents with Vallejo catheter problem Prior Charts reviewed in our EMR Primary Historian: patient's nursing staff Patient's symptoms improved over duration of stay with above-stated therapies. (Vallejo change) No ongoing symptoms, appropriate for DC by S transfer Discharge Plan Departure Patient Disposition: Home Clinical Impression: Vallejo catheter problem Instructions: How to Care for Your Vallejo Catheter -- Female Activity Restrictions/Additional Instructions: *You have been diagnosed with [Vallejo catheter problem] *What to do: *Please continue to take your regular medications as directed. *Please follow up with your primary care provider in 2-3 days, call for an appointment. Let them know you were seen in the Emergency Department and that we ask that you be seen in follow up. We will electronically transmit a record of today's note if your PCP is in our system *Return to Emergency Department if you should have any new, worsening or concerning symptoms, such as [fever greater than 101 F, shaking chills, worsening pain, persistent vomiting or other bothersome symptoms] Prescriptions: No Action diltiazem HCl 120 mg capsule,ext.rel 24h degradable 120 mg PO DAILY lamotrigine 100 mg tablet 100 mg PO BID memantine 10 mg tablet 10 mg PO BID trazodone 100 mg tablet 100 mg PO BEDTIME cholecalciferol (vitamin D3) 25 mcg (1,000 unit) capsule 25 mcg PO DAILY mecobalamin (vitamin B12) 1,000 mcg tablet,chewable 1,000 mcg PO DAILY docusate sodium [Dulcolax Stool Softener (dss)] 100 mg capsule 100 mg PO BID Qty: 60 0RF levofloxacin 750 mg tablet 750 mg PO DAILY 4 Days Qty: 4 0RF Rx Instructions: Next dose 08/03/2023 Referrals: *Temp,ED* [Non-Staff] - Stand Alone Forms: Patient Portal/API
--- NOTE | 2023-08-04 21:00 | PC.NURSE ---
Pt had urine leaking around catheter. When catheter was removed there was a small blood clot at the end of the catheter.
[2023-08-04 21:51] VITALS: BP 130/70; PULSE 75; RESP 16; O2SAT 98
== END 2023-08-04 21:53 | disposition home or self-care (01) ==
PROVIDERS: Emergency Provider Emergency Medicine
DX: T83.9XXA Unspecified complication of genitourinary prosthetic device, implant and graft, initial encounter (principal)
CPT/HCPCS: 99282; 99283

== ENCOUNTER → 2023-08-25 10:00 | Outpatient (CLI) | payer MEDICARE, SELFPAY | PROVIDERS: PCP Family Medicine; Visit Provider Urology | DX: R33.9 Retention of urine, unspecified (principal); K59.00 Constipation, unspecified; R53.81 Other malaise; R26.89 Other abnormalities of gait and mobility | CPT/HCPCS: 51702; 87077; 87086; 87186; 99214 ==

== ENCOUNTER → 2023-09-22 21:36 | Outpatient (ROUT) | payer MEDICARE, SELFPAY ==
[2023-09-22 22:04] LABS: Appearance Urine UA CLOUDY; Bilirubin Urine UA NEGATIVE (NEGATIVE); Color Urine UA YELLOW; Glucose Urine UA NEGATIVE (Negative); Ketones Urine UA NEGATIVE (NEGATIVE); Leukocyte Esterase Urine UA NEGATIVE (NEGATIVE); Nitrite Urine UA NEGATIVE (Negative); Occult Blood Urine UA NEGATIVE (Negative); Protein Urine UA NEGATIVE (Negative); Urobilinogen Urine UA 0.2 E.U./dL (0.2)
[2023-09-22 22:07] LABS: pH Urine UA 7.5 (4.5-8.0)
[2023-09-22 22:55] LABS: Bacteria Urine None Seen; RBC Urine None Seen (0-5/HPF); Squamous Epithelial Cell Urine 0-1 /HPF (0-5/HPF); WBC Urine 0-1/HPF (0-5/HPF)
[2023-09-22 22:56] LABS: Amorphous Sediment Urine 3+; Culture Indicated Urine Cult Not Indicated
== END ==
PROVIDERS: PCP Student in an Organized Health Care Education/Training Program; Visit Provider Urology
DX: R82.90 Unspecified abnormal findings in urine (principal)
CPT/HCPCS: 81001

== ENCOUNTER 2023-11-22 11:01 | Emergency (ER) | payer MEDICARE, SELFPAY ==
[2023-11-22] VITALS (12 sets, daily range): BP systolic 104–138; BP diastolic 52–64; PULSE 63–94; RESP 16; TEMP 37.1; O2SAT 94–98
--- NOTE | 2023-11-22 11:10 | DI.RAD.S_ITS ---
PROCEDURE: XR HAND LT 2V INDICATIONS: fall, ?intermittent hip pain, dementia TECHNIQUE: 2 views of the hand(s) acquired. COMPARISON: None. FINDINGS: Bones: There is poor visualization of the distal 2nd digit. Overlying metallic density is present. There are minimally displaced fractures within the midportion of the 4th and 5th metacarpals. Distal aspects of the digits are suboptimally evaluated secondary to positioning. Soft tissues: No suspicious soft tissue calcifications. IMPRESSION: Minimally displaced 4th and 5th metacarpal fractures without intra-articular extension. Remaining digits are suboptimally evaluated secondary to positioning. Dictated by: Kanwal Del Real M.D. on 11/22/2023 at 12:01 Approved by: Kanwal Del Real M.D. on 11/22/2023 at 12:04
--- NOTE | 2023-11-22 11:10 | DI.RAD.S_ITS ---
PROCEDURE: XR PELVIS 1-2V INDICATIONS: fall, ?intermittent hip pain, dementia TECHNIQUE: 1 view(s) of the pelvis acquired. COMPARISON: [facility], CT, CT ABDOMEN PELVIS W CON, 07/14/2023, 9:33. [facility], CR, XR ABDOMEN MIN 2V, 07/14/2023, 8:28. FINDINGS: Suboptimal exam secondary to patient positioning. Bones: No fractures or dislocations. No suspicious bony lesions. Soft tissues: Visualized bowel gas pattern is normal. No suspicious soft tissue calcifications. IMPRESSION: Suboptimal exam secondary to positioning. No visualized acute fracture or dislocation. However, if clinical concern and/or pain persist, CT is recommended. Dictated by: Kanwal Del Real M.D. on 11/22/2023 at 11:59 Approved by: Kanwal Del Real M.D. on 11/22/2023 at 12:01
--- NOTE | 2023-11-22 11:11 | ED_ITS ---
HPI - General Adult General Chief complaint: Extremity Injury, Lower Stated complaint: L hip pain Time Seen by Provider: 11/22/23 11:10 Source: patient, EMS, RN notes reviewed and old records reviewed Mode of arrival: EMS Limitations: other (dementia) History of Present Illness HPI narrative: 78-year-old female with history of dementia unable to provide history. Per EMS she can tell her name some basic questions but can not give any other history which is baseline. She has had multiple falls from her recliner chair. Described as slips from the chairs onto the floor. She has been returned to the chair several times but in the last day seems to be in pain particularly in her left hip. Patient does not answer. When hip is palpated does not seem painful but is very tight and tense. Patient can tell me her name. She does not other questions but alert and interactive EMS states when they lifted initially she seemed to be fine but when they moved her from the gurney to the ER bed she did show out. Unclear if she was frightened or in pain. Patient has not had any other complaints from the [facility]. No reported fevers, no difficulty with breathing, no vomiting no diarrhea constipation no new urinary issues. There is a note from July of 2023 that patient had a catheter in place for retention. Patient's son is reported to be DPOA has been contacted and coming from [place]. Related Data Home Medications Medication Instructions Recorded Confirmed cholecalciferol (vitamin D3) 25 25 mcg PO DAILY 07/29/23 09/28/23 mcg (1,000 unit) capsule diltiazem HCl 120 mg 120 mg PO DAILY 07/29/23 09/28/23 capsule,extended release 24 hr, controlled lamotrigine 100 mg tablet 100 mg PO BID 07/29/23 09/28/23 mecobalamin (vitamin B12) 1,000 1,000 mcg PO DAILY 07/29/23 09/28/23 mcg chewable tablet memantine 10 mg tablet 10 mg PO BID 07/29/23 09/28/23 trazodone 100 mg tablet 100 mg PO BEDTIME 07/29/23 09/28/23 Previous Rx's Medication Instructions Recorded docusate sodium 100 mg capsule 100 mg PO BID #60 caps 07/14/23 (Dulcolax Stool Softener (docusate)) ibuprofen 600 mg tablet 600 mg PO TID PRN fever or pain 11/21/23 #30 tabs Allergies Allergy/AdvReac Type Severity Reaction Status Date / Time No Known Drug Allergies Allergy Verified 11/22/23 11:14 Review of Systems Review of Systems ROS Unobtainable: All systems reviewed & are unremarkable except as noted in HPI and below Patient History Medical History History of urinary incontinence History of urinary tract infection Decreased mobility Physical deconditioning Urinary retention Seizure Dementia Family History Mother Hearing difficulty Social History marital status: number of children: 3 lives independently: No Previous occupational history: Retired Homemaker Smoking Status: Never smoker alcohol intake: never caffeine: No Type(s) of exercise: none Smoking Status: Never smoker alcohol intake frequency: other Substance Use Type: does not use Exam Narrative Exam Narrative: GEN: Patient appears in mild distress. HEAD: No evidence of trauma, no raccoon/Stiles sign. NECK: Nontender, painless range of motion, trachea midline. No midline line tenderness, neuro deficit, recent EtOH. EYES: PERRLA, EOMI ENT: External inspection normal, trachea is midline, TM's are normal no hemotypanum, Nares are clear, no septal hematoma, no dental or oral injury, airway is normal and with normal occlusion, No bony tenderness RESP: Chest is nontender and has symmetric movement, no ecchymosis, breath sounds are normal no crackles, wheezes or rales CVS: Heart sounds are normal, no murmur noted, No JVD. ABG/GI: Nontender, soft, normal bowel sounds, no distention, no organomegaly, pelvic rock is negative= NEURO: Oriented AOx3, neuro is grossly intact, sensation and motor is normal all 4 extremities moving, cranial nerves II through XII are intact, GCS is 14, appears to be at baseline. PSYCH: Normal mood and affect SKIN: Intact, warm and dry, no crepitus and without decubitus BACK: No CVA tenderness, no vertebral tenderness, no step-off's, no crepitus EXT: Atraumatic with direct palpation, able to passively move patient's legs but she hold herself very tightly. Hips are nontender, no pedal edema, normal color and temperature, normal range of motion of extremities with normal tendon exam, 2+ pulses in all four extremities Initial Vital Signs Initial Vital Signs: Vital Signs Temperature 98.8 F 11/22/23 11:10 Pulse Rate 94 H 11/22/23 11:10 Respiratory Rate 16 11/22/23 11:10 Blood Pressure 126/59 L 11/22/23 11:10 Pulse Oximetry 98 11/22/23 11:10 Oxygen Delivery Method Room Air 11/22/23 11:10 Course Orders Ordered: ED Orders 11/22/23 11:10 XR hand LT 2V Stat XR pelvis 1-2V Stat 11/22/23 11:31 CT chest abd pel wo con Stat 11/22/23 11:45 CBC Auto Diff [Complete Blood Count AUTO DIFF] Stat CMP [Comprehensive Metabolic Panel] Stat Lipase Stat 11/22/23 14:31 Consult to PARTS PRODUCT ANALYST - Software Engineer Intern Stat 11/22/23 15:31 Consult to Hospice Referral Stat Discontinued Medications Ibuprofen (Ibuprofen 400 Mg Tablet) 800 mg PO NOW ONE Stop: 11/22/23 14:34 Last Admin: 11/22/23 14:41 Dose: 800 mg Documented By: KEILA Vital Signs Vital signs: Vital Signs - 8 hr 11/22/23 11:10 11/22/23 11:14 11/22/23 11:37 Temperature 98.8 F Pulse Rate 94 H 81 77 Respiratory Rate 16 Blood Pressure 126/59 L Pulse Oximetry 98 95 95 Oxygen Delivery Method Room Air 11/22/23 11:38 11/22/23 11:38 11/22/23 12:00 Temperature Pulse Rate 74 64 Respiratory Rate Blood Pressure 104/52 L Pulse Oximetry 95 94 Oxygen Delivery Method 11/22/23 12:30 11/22/23 13:00 11/22/23 13:30 Temperature Pulse Rate 63 67 72 Respiratory Rate Blood Pressure Pulse Oximetry 94 97 96 Oxygen Delivery Method Room Air 11/22/23 13:36 11/22/23 13:36 11/22/23 14:00 Temperature Pulse Rate 77 75 Respiratory Rate Blood Pressure 138/58 L Pulse Oximetry 96 95 Oxygen Delivery Method Room Air 11/22/23 14:00 11/22/23 14:30 11/22/23 14:30 Temperature Pulse Rate 87 Respiratory Rate Blood Pressure 131/64 133/60 Pulse Oximetry 95 Oxygen Delivery Method Room Air 11/22/23 15:33 11/22/23 15:33 Temperature Pulse Rate 82 Respiratory Rate Blood Pressure 112/63 Pulse Oximetry 94 Oxygen Delivery Method Room Air Medical Decision Making Lab Data 11/22/23 11:45 11/22/23 11:45 Labs: Lab Results 11/22/23 Range/Units 11:45 WBC 9.6 (4.5-11.0) X10^3/uL RBC 4.34 (4.0-5.2) X10^6/uL Hgb 13.6 (12.0-16.0) g/dL Hct 39.6 (36-46) % MCV 91.4 (80-100) fL MCH 31.3 (26-34) PG MCHC 34.2 (30-36) % RDW 12.4 (11.6-14.8) % Plt Count 249 (150-400) X10^3/uL Neut % (Auto) 84.6 H (50-75) % Lymph % (Auto) 8.3 L (25-40) % Cowley % (Auto) 6.6 (3-14) % Eos % (Auto) 0.3 L (2-4) % Baso % (Auto) 0.2 (0-2) % Neut # (Auto) 8100 H (4749-6276) /uL Lymph # (Auto) 800 L (8621-6999) /uL Cowley # (Auto) 600 (0-900) /uL Eos # (Auto) 0 (0-450) /uL Baso # (Auto) 0 (0-100) /uL Sodium 137 (137-145) mmol/L Potassium 3.5 (3.4-5.1) mmol/L Chloride 103 (98-107) mmol/L Carbon Dioxide 25 (22-32) mmol/L BUN 21 H (7-17) mg/dL Creatinine 0.83 (0.52-1.04) mg/dL Estimated GFR > 60 (>60) mL/min BUN/Creatinine Ratio 25.3 H (6-22) Glucose 153 H (80-110) mg/dL Calcium 9.6 (8.4-10.2) mg/dL Total Bilirubin 0.9 (0.2-1.3) mg/dL AST 33 (14-36) IU/L ALT 40 H (<35) IU/L Alkaline Phosphatase 130 H (38-126) U/L Total Protein 6.6 (6.3-8.2) g/dL Albumin 3.6 (3.5-5.0) g/dL Globulin 3.0 (1.7-4.1) g/dL Albumin/Globulin Ratio 1.2 (1.0-2.8) Lipase 20 L (23-300) U/L Imaging Data L hip/pelvis: Radiologist's Impression: [address] [address] [address] Scan Report Signed Patient: Arlen Redding MR#: [id number] : 1945 Acct:[id number] Age/Sex: 78 / F Date of Service: 11/22/23 Loc: ED Accession Number: [id number] Procedure: CT chest abd pel wo con Ordering Provider: Naina Balderas D.O. PROCEDURE: CT CHEST ABD PEL WO CON INDICATIONS: won't lay on back, pain, severe dementia, ? fx TECHNIQUE: After the administration of oral contrast, 5 mm thick sections acquired from the lung apices to the symphysis pubis. 5 mm thick coronal and sagittal reformats acquired, with additional 7 mm coronal MIP reformats through the lungs. For radiation dose reduction, the following was used: automated exposure control, adjustment of mA and/or kV according to patient size. COMPARISON: [facility], CR, XR PELVIS 1-2V, 11/22/2023, 11:12. FINDINGS: Image quality: Degraded by patient positioning factors. CHEST: Lower Neck: No enlarged lymph nodes. Thyroid: No thyroid nodules which require sonographic follow up, per consensus guidelines. Axillae: No enlarged lymph nodes. Chest Wall: Unremarkable. Bones: Unremarkable. Lungs and Pleura: No pneumothorax or pleural effusions. Mild ground-glass density within the right mid and lower lung. Ground-glass and spiculated density within the left upper lobe anteriorly measuring roughly 11 mm. Subpleural nodules within the left upper lobe laterally are present, largest of which measures 9 mm. Heart: Heart size is normal. No pericardial effusion. Calcification of the coronary vasculature. Thoracic Vessels: The aorta and pulmonary arteries demonstrate normal size. Mediastinum and Alison: No enlarged lymph nodes. Esophagus: Thickening of the distal esophagus. Small hiatal hernia. ABDOMEN: Liver: No solid mass. Gallbladder: Calculi within the gallbladder lumen. Biliary ducts: No biliary dilation. Pancreas: No ductal dilation. Spleen: Size is within normal limits. Adrenal Glands: No adrenal nodules. Kidneys and Ureters: No hydronephrosis. No solid mass. No complex renal cystic lesion which requires follow up. Stomach and Bowel: Normal colonic caliber, without significant wall thickening. Peritoneum: No abnormal intraperitoneal fluid. No free air. Ventral Wall: No hernia. Abdominal Nodes: No retroperitoneal or mesenteric adenopathy by size criteria. Vessels: Aorta and inferior vena cava are normal in size. PELVIS: Pelvic Organs: Calcified uterine mass measuring 40 mm diameter. Bladder: Unremarkable. Pelvic Nodes: No enlarged lymph nodes. Miscellaneous: No inguinal hernias are seen. Bones: Mildly displaced right lateral sacral fracture. IMPRESSION: 1. Right sacral fracture. 2. Coronary artery disease. 3. Right lower lobe pneumonia. 4. Cholelithiasis. 5. Pulmonary nodules. Follow-up is recommended as below. 6. Hiatal hernia with distal esophageal thickening. Further assessment with endoscopy is recommended to assess for neoplasm. Fleischner Society criteria for SOLID lung nodule followup. Nodule size (mm)Low-risk patientHigh-risk patient<6 (single or multiple)No routine followup.Optional CT at 12 months. 6-8 (single or multiple)CT at 6-12 months, then optional CT at 18-24 mo.CT at 6-12 months, then CT at 18-24 months. >8 (single)CT, PET-CT, or biopsy at 3 months. Same as for low-risk pts. >8 (multiple)CT at 3-6 months, then optional CT at 18-24 mo.CT at 3-6 months, then CT at 18-24 months. Fleischner Society criteria for SUB-SOLID lung nodule followup. Solitary pure ground-glass nodules<6 mm (ground glass or part solid)No followup needed. 6 mm or larger (ground glass)CT at 6-12 months to confirm persistence, then CT every 2 years until 5 years.6 mm or larger (part solid)CT at 3-6 months to confirm persistence, then annual CT until 5 years if unchanged and solid component remains <6 mm. Multiple sub-solid nodules<6 mmCT at 3-6 months, then CT consider at 2 & 4 years for high risk patients. [address] at 3-6 months. Subsequent management based on most suspicious lesions. Recommendations do not apply to lung cancer screening, patients with immunosuppression, or patients with known primary cancer. Dictated by: Hi Hassan M.D. on 11/22/2023 at 12:12 Approved by: Hi Hassan M.D. on 11/22/2023 at 12:17 [facility] Narrative Medical decision making narrative: 78-year-old female with multiple low-level fall slipping from her recliner recently. These have been witnessed. No reports of hitting her head. Patient does have baseline dementia knows her name but typically not able to give much other information. Intermittently seems to have pain at her left hip but has not been with every evaluation or movement by EMS or myself. Plan for chest x-ray, pelvis with left hip patient does have some redness over her dorsum of her left hand. Labs including CBC normal range, CMP, lipase shows normal renal function BUN 21 creatinine is appropriate at 0.83, ALT is 40 alk-phos is 130 glucose 153 otherwise normal labs. Urine X-ray shows 4th and 5th metacarpals with minimally displaced fracture. CT chest abdomen pelvis shows right lateral sacral fracture. No other fractures noted. Possible pneumonia. Cholelithiasis, coronary artery disease. Pulmonary nodules with follow-up. Hiatal hernia with distal esophageal thickening. Endoscopic be recommended to assess for neoplasm. Patient case discussed with Dr. Baltazar from orthopedic surgery: Patient is recommended toe-touch weight-bearing for her sacral fracture if she is willing to ambulate. An ulnar gutter splint for her hand. Follow-up outpatient. Spoke with patient family: Reviewed findings including gallbladder she has had workup already. Reviewed her findings including pneumonia. No active symptoms will hold off on this. Reviewed her x-ray imaging plan to follow up with Orthopedic surgery although he states they may per for primary care initially. Plan for splint, we will discuss with PARTS PRODUCT ANALYST she would qualify for any visiting nurses. He feels comfortable with her returning back to facility he states they do have walkers because she does not walk some and can toe-touch weightbear as tolerated. Plan for Tylenol and/or ibuprofen as needed for pain. PARTS PRODUCT ANALYST eval for options. Spoke with patient's . Actually they are interested in hospice. Patient would be appropriate she is pretty significant dementia. PARTS PRODUCT ANALYST put in for order. Discharge Plan Departure Patient Disposition: Home Clinical Impression: Fracture of hand, Closed sacral fracture Activity Restrictions/Additional Instructions: Follow up with Orthopedic surgery in the next week for recheck. You have a fracture of the 4th and 5th metacarpals in your hand. Wear splint until cleared by Orthopedic surgery or your primary care physician. You also have a right sacral fracture, you may ambulate with toe-touch on the right side with a walker. Whatever position is most comfortable you may continue with. You can take Tylenol up to a 1000 mg every 6 hours as needed for pain and/or ibuprofen up to 600 mg every 6 hours as needed. You can use a donut cushion for the sacrum. Please return for new or worsening symptoms increasing pain, fevers, increasing redness or swelling of the hand, color changes, new chest pain or shortness of breath altered immunizations in mental status or other new or concerning changes. Prescriptions: No Action ibuprofen 600 mg tablet 600 mg PO TID PRN (Reason: fever or pain) Qty: 30 5RF Rx Instructions: Please give 600mg Ibuprofen up to three times daily as needed for fever or pain diltiazem HCl 120 mg capsule,ext.rel 24h degradable 120 mg PO DAILY lamotrigine 100 mg tablet 100 mg PO BID memantine 10 mg tablet 10 mg PO BID trazodone 100 mg tablet 100 mg PO BEDTIME cholecalciferol (vitamin D3) 25 mcg (1,000 unit) capsule 25 mcg PO DAILY mecobalamin (vitamin B12) 1,000 mcg tablet,chewable 1,000 mcg PO DAILY docusate sodium [Dulcolax Stool Softener (dss)] 100 mg capsule 100 mg PO BID Qty: 60 0RF Referrals: Martha Baltazar MD [Physician] - Annalee Glynn MD [Primary Care Provider] - Stand Alone Forms: Patient Portal/API
--- NOTE | 2023-11-22 11:18 | PC.NURSE ---
patient found sitting on floor in front of recliner, patient frequently slides out of chair. Usually just assisted back into bed. Today when assisted back into bed yelled out. No obvious deformity noted, however patient won't lay flat on back. Curled up in in position on right side.
--- NOTE | 2023-11-22 11:31 | DI.CT.S_ITS ---
PROCEDURE: CT CHEST ABD PEL WO CON INDICATIONS: won't lay on back, pain, severe dementia, ? fx TECHNIQUE: After the administration of oral contrast, 5 mm thick sections acquired from the lung apices to the symphysis pubis. 5 mm thick coronal and sagittal reformats acquired, with additional 7 mm coronal MIP reformats through the lungs. For radiation dose reduction, the following was used: automated exposure control, adjustment of mA and/or kV according to patient size. COMPARISON: [facility], CR, XR PELVIS 1-2V, 11/22/2023, 11:12. FINDINGS: Image quality: Degraded by patient positioning factors. CHEST: Lower Neck: No enlarged lymph nodes. Thyroid: No thyroid nodules which require sonographic follow up, per consensus guidelines. Axillae: No enlarged lymph nodes. Chest Wall: Unremarkable. Bones: Unremarkable. Lungs and Pleura: No pneumothorax or pleural effusions. Mild ground-glass density within the right mid and lower lung. Ground-glass and spiculated density within the left upper lobe anteriorly measuring roughly 11 mm. Subpleural nodules within the left upper lobe laterally are present, largest of which measures 9 mm. Heart: Heart size is normal. No pericardial effusion. Calcification of the coronary vasculature. Thoracic Vessels: The aorta and pulmonary arteries demonstrate normal size. Mediastinum and Alison: No enlarged lymph nodes. Esophagus: Thickening of the distal esophagus. Small hiatal hernia. ABDOMEN: Liver: No solid mass. Gallbladder: Calculi within the gallbladder lumen. Biliary ducts: No biliary dilation. Pancreas: No ductal dilation. Spleen: Size is within normal limits. Adrenal Glands: No adrenal nodules. Kidneys and Ureters: No hydronephrosis. No solid mass. No complex renal cystic lesion which requires follow up. Stomach and Bowel: Normal colonic caliber, without significant wall thickening. Peritoneum: No abnormal intraperitoneal fluid. No free air. Ventral Wall: No hernia. Abdominal Nodes: No retroperitoneal or mesenteric adenopathy by size criteria. Vessels: Aorta and inferior vena cava are normal in size. PELVIS: Pelvic Organs: Calcified uterine mass measuring 40 mm diameter. Bladder: Unremarkable. Pelvic Nodes: No enlarged lymph nodes. Miscellaneous: No inguinal hernias are seen. Bones: Mildly displaced right lateral sacral fracture. IMPRESSION: 1. Right sacral fracture. 2. Coronary artery disease. 3. Right lower lobe pneumonia. 4. Cholelithiasis. 5. Pulmonary nodules. Follow-up is recommended as below. 6. Hiatal hernia with distal esophageal thickening. Further assessment with endoscopy is recommended to assess for neoplasm. Fleischner Society criteria for SOLID lung nodule followup. Nodule size (mm)Low-risk patientHigh-risk patient<6 (single or multiple)No routine followup.Optional CT at 12 months. 6-8 (single or multiple)CT at 6-12 months, then optional CT at 18-24 mo.CT at 6-12 months, then CT at 18-24 months. >8 (single)CT, PET-CT, or biopsy at 3 months. Same as for low-risk pts. >8 (multiple)CT at 3-6 months, then optional CT at 18-24 mo.CT at 3-6 months, then CT at 18-24 months. Fleischner Society criteria for SUB-SOLID lung nodule followup. Solitary pure ground-glass nodules<6 mm (ground glass or part solid)No followup needed. 6 mm or larger (ground glass)CT at 6-12 months to confirm persistence, then CT every 2 years until 5 years.6 mm or larger (part solid)CT at 3-6 months to confirm persistence, then annual CT until 5 years if unchanged and solid component remains <6 mm. Multiple sub-solid nodules<6 mmCT at 3-6 months, then CT consider at 2 & 4 years for high risk patients. [address] at 3-6 months. Subsequent management based on most suspicious lesions. Recommendations do not apply to lung cancer screening, patients with immunosuppression, or patients with known primary cancer. Dictated by: Hi Hassan M.D. on 11/22/2023 at 12:12 Approved by: Hi Hassan M.D. on 11/22/2023 at 12:17
--- NOTE | 2023-11-22 11:34 | PC.NURSE ---
Redness and swelling noted to right hand. CMS intact. Patient expressed discomfort when palpation of right hand.
--- NOTE | 2023-11-22 11:36 | PC.NURSE ---
Patient unable to put in proper position for xray, patient to CT for imaging
[2023-11-22 12:00] LABS: Add Manual Diff / Slide Review NO; Basophils Absolute Auto 0 /uL (0-100); Basophils Percent Auto 0.2 % (0-2); Eosinophils Absolute Auto 0 /uL (0-450); Eosinophils Percent Auto 0.3 % (2-4); Hematocrit 39.6 % (36-46); Hemoglobin 13.6 g/dL (12.0-16.0); Lymphocytes Absolute Auto 800 /uL (1100-4500); Lymphocytes Percent Auto 8.3 % (25-40); Mean Corpuscular HGB Conc 34.2 % (30-36); Mean Corpuscular Hemoglobin 31.3 PG (26-34); Mean Corpuscular Volume 91.4 fL (80-100); Monocytes Absolute Auto 600 /uL (0-900); Monocytes Percent Auto 6.6 % (3-14); Neutrophils Absolute Auto 8100 /uL (1500-7000); Neutrophils Percent Auto 84.6 % (50-75); Platelet Count 249 X10^3/uL (150-400); Red Blood Cell Count 4.34 X10^6/uL (4.0-5.2); Red Cell Distribution Width 12.4 % (11.6-14.8); White Blood Cell Count 9.6 X10^3/uL (4.5-11.0)
[2023-11-22 12:02] LABS: Alanine Aminotransferase 40 IU/L (<35); Albumin 3.6 g/dL (3.5-5.0); Albumin Globulin Ratio 1.2 (1.0-2.8); Alkaline Phosphatase 130 U/L (38-126); Aspartate Aminotransferase 33 IU/L (14-36); BUN Creatinine Ratio 25.3 (6-22); Bilirubin Total 0.9 mg/dL (0.2-1.3); Blood Urea Nitrogen 21 mg/dL (7-17); Calcium 9.6 mg/dL (8.4-10.2); Carbon Dioxide 25 mmol/L (22-32); Chloride 103 mmol/L (98-107); Estimated Glomerular Filt Rate > 60 mL/min (>60); Glucose 153 mg/dL (80-110); HEMOLYSIS < 15 (0-50); Lipase 20 U/L (23-300); Potassium 3.5 mmol/L (3.4-5.1); Sodium 137 mmol/L (137-145); Total Protein 6.6 g/dL (6.3-8.2)
[2023-11-22] MEDS: IBUPROFEN 400 MG TABLET 800 MG PO (14:41)
--- NOTE | 2023-11-22 15:44 | CM.SWNOTE ---
ED SERVICE DESK AGENT Note SERVICE DESK AGENT receives consult due to concern for patient's recent GLF and closed sacral and hand fracture. Patient is 78 y/o female with Alzheimer Disease who presents to the ED via EMS from [facility] due to concern for recent GLF where patient slid out of recliner chair. Patient's PCP is Dr. Annalee Gillespie, patient has [employer] Medicare insurance. SERVICE DESK AGENT reviews EMR and identifies that Dr. Gillespie referred patient for [facility] in September 2023. SERVICE DESK AGENT enters room, present in room is patient's Spouse Kings who reports he is DPOA and patient is DNR. It is reported that patient resides at [facility] and has been doing well there but he has noticed patient has lost weight in recent months. Spouse endorses that he visits patient 1-2 times a week and he resides in [place]. It is reported that patient is usually ambulatory with supervision and patient usual draws and colors for entertainment and looks forward to meals. [facility] staff assist with most of patient's ADLs. Spouse reports that [facility] has not been seeing patient per his recollection. Spouse provides SERVICE DESK AGENT with phone number for admin at [facility] Gretchen Aponte (Ph. # [phone]) SERVICE DESK AGENT discusses HH vs. Hospice with spouse and spouse is in agreement with hospice referral for comfort and pain management for patient. SERVICE DESK AGENT reviews this with ED provider Dr. Balderas who indicates agreement, SERVICE DESK AGENT submits hospice order. SERVICE DESK AGENT calls [facility] and it is reported that patient refused services in September, SERVICE DESK AGENT discusses patient's presentation to the ED today and informs them of new referral. SERVICE DESK AGENT faxes order and clinicals for referral. SERVICE DESK AGENT provides spouse with [facility] brochure. SERVICE DESK AGENT speaks with [facility] admin Gretchen who endorses concern for patient's decline and is in agreement with Hospice services, Gretchen reports that patient is a private pay client and her spouse visits her regularly. SERVICE DESK AGENT calls PCP office regarding patient's presentation to ED and new Hospice referral. Plan: patient to d/c to [facility] via BLS this afternoon, [facility] referral in place. YARI Nguyen
== END 2023-11-22 16:35 | disposition home or self-care (01) ==
PROVIDERS: Emergency Provider Emergency Medicine; PCP Student in an Organized Health Care Education/Training Program
DX: S62.305A Unspecified fracture of fourth metacarpal bone, left hand, initial encounter for closed fracture (principal); S62.307A Unspecified fracture of fifth metacarpal bone, left hand, initial encounter for closed fracture; S32.10XA Unspecified fracture of sacrum, initial encounter for closed fracture; G30.9 Alzheimer's disease, unspecified; F02.80 Dementia in other diseases classified elsewhere, unspecified severity, without behavioral disturbance, psychotic disturbance, mood disturbance, and anxiety; R29.6 Repeated falls
CPT/HCPCS: 29125; 36415; 71250; 72170; 73120; 74176; 80053; 83690; 85025; 99284